=== PATIENT | male | born 1965 | race Caucasian/White ===

== ENCOUNTER 2023-08-07 10:23 | Outpatient (AMB) | payer OTHER, SELFPAY ==
--- NOTE | 2023-08-07 10:38 | MHC.OFFVIS ---
Intake Vital Signs 08/07/23 10:46 Height 5 ft 9 in Weight 198 lb BMI 29.2 BP 122/86 Blood Pressure Location Rt brachial Position Sitting Respiration 16 Pulse 100 Pulse Source Pulse Oximeter Pulse Oximetry (%) 99 Oxygen Delivery Method Room Air Intake Visit Reasons: Back pain - LVM Intake Note: Patient came in for initial visit was referred by primary care. Reports back and shoulder pain 12/23. Has been going to physical therapy twice a week for 1 year and 8 months. Allergies No Known Allergies Allergy (Verified 08/07/23 10:42) HPI HPI Comments History of Present Illness Details Pradip mcneill) is very pleasant 58 years old gentleman who presents in my office with complains on pain in the lower back. Somehow he relates this pain to the pain in the left shoulder as well. He reports that he had a trauma at work in the summer of 2021, he reported severe pain in the shoulder and went to [facility] for the consult. Originally the tear of rotator cuff was diagnose and he was sent to physical therapy. He is started to feel his lower back pain while in physical therapy. He change his Dr. Josue at [facility] And went to [place] orthopedic surgeon where he was diagnose with rotator cuff tear and biceps tear which would require immediate surgery. He had surgery performed and was sent for physical therapy again and that made his back getting worse. 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 He reports that the pain is unpredictable and very often he feels his pain when he is trying to switch his torso from side to side. The pain is most severe during the daytime. In terms of tissue damage he describes his pain as stabbing, lancinating, cramping, crushing sensation. He did not have any MRI of the lower back. He had MRI of the shoulder only. He had chiropractic manipulation 2 sessions and reported no help. He never had any injections in the past. There is no images of the lower back at this time however the pain in the lower back is chronic by this time 1-1/2 year interval. His past medical history significant for elevated cholesterol his past surgical history significant for shoulder surgery and ear tubes as a child. 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 He is under workmen's comp for his shoulder injury. He denies smoking cigarettes Ms. Drinking 6 beers a week of alcohol he drinks 2 cups of coffee a day and he denies recreational drugs. [facility] Medical History (Updated 08/07/23 @ 11:50 by Dmitriy Ross MD) HLD (hyperlipidemia) Left shoulder pain Impacted cerumen Elevated blood pressure, situational Insomnia Anxiety Review of Systems Const Denies chills and Denies fever(s) Eyes Denies blurry vision, Denies exophthalmos and Denies diplopia ENT Reports Normal hearing present Card Denies chest pain, Denies chest pain at rest, Denies chest pain with activity, Reports diaphoresis, Denies syncope, Denies rapid heart rate, Denies pedal edema and Denies edema Resp Denies chest congestion, Denies cough, Denies hemoptysis, Denies excessive phlegm production, Denies pain on inspiration and Denies pain with cough GI Denies abdominal pain, Denies belching, Denies melena and Denies bloating Denies urinary incontinence Musc Denies as per HPI, Denies back pain and Denies tingling Neuro Reports Normal hearing present, Denies Abnormal speech present, Denies confusion, Denies syncope, Denies lack of coordination, Denies Sensory deficit (Neuro) and Denies tingling Psych Reports anxiety, Denies confusion, Denies depression and Reports irritability Physical Exam Vital Signs: Last Vital Signs Pulse 100 08/07/23 10:46 Resp 16 08/07/23 10:46 BP 122/86 08/07/23 10:46 Pulse Ox 99 08/07/23 10:46 Oxygen Delivery Method Room Air 08/07/23 10:46 BMI result Body Mass Index 29.2 Const General: No confusion Orientation/consciousness: No confusion Eyes General: appearance normal, both eyes and all related structures Pupils: Equal, round and reactive pupils present EOM: EOMs intact bilaterally Neck Neck: Yes full ROM Chest Chest palpation & inspection: normal inspection of the chest Resp Effort & Inspection: normal respiratory effort, able to speak in complete sentences, normal respiratory pattern, no audible wheezes and no cough Cardio Jugular venous distension: no JVD GI Inspection: Yes normal to inspection Back/Spine/Pelvis Other: Able to stand on bilateral tiptoes and bilateral heels without difficulty. Walks without gait pathology. Able to flex himself forward and backwards with minimal difficulty. Denies tenderness on palpation in the lumbar spine and paraspinal spinal region. SLR is negative bilaterally. Stinchfield test, Abdiel test, Gaenslen test, positive for increase of the pain in the lower back. Neuro General: No confusion Cranial nerves: Yes CN's II-XII intact bilaterally, Yes Equal, round and reactive pupils present, Yes Normal hearing present and Yes Ability to bilaterally elevate shoulders present Speech: No Abnormal speech present Gait exam (Neuro): Normal gait present Motor exam (neuro): 5/5 motor strength present throughout Sensory Exam: No Sensory deficit (Neuro) Extrem General: No pedal edema Psych Speech and movement: Normal speech and movement present Affect: normal affect Attitude: cooperative Thought process: Normal thought process present Thought content: Normal thought content present Insight: Good insight present (Psych) Judgement: Good judgement present (Psych) Assessment & Plan Assessment & Plan (1) Sacroiliitis: Code(s): M46.1 - Sacroiliitis, not elsewhere classified (2) Sacroiliac joint dysfunction of both sides: Code(s): M53.3 - Sacrococcygeal disorders, not elsewhere classified (3) Low back pain: Code(s): M54.50 - Low back pain, unspecified Plan: Prolonged and Lynnette difficult conversation ensued with this patient. It seemed to be for me that he is suffering from bilateral sacroiliitis, however I can not exclude vertebra genic pain. He is confused about coverage of his painful conditions with [employer] versus his traditional insurance company. I recommended him to perform bilateral diagnostic sacroiliac joint injection. If this procedure will not relieve her pain for appropriate time with appropriate percentage arrange I will send him for the MRI of the lumbar spine to evaluate possible vertebra genic pain. (4) Vertebrogenic low back pain: Code(s): M54.51 - Vertebrogenic low back pain Plan We will schedule him for diagnostic bilateral SI joint injection. Patient Instructions: I here by testify that I spent 55 minutes in conversation with this patient as well as planning his care and organizing this note. Coding Level of Care Code New Pt Level 4 (98659) Diagnoses Sacroiliitis M46.1 Sacroiliac joint dysfunction of both sides M53.3 Low back pain M54.50 Vertebrogenic low back pain M54.51
[2023-08-07 10:46] VITALS: BP 122/86; PULSE 100; RESP 16; O2SAT 99; BMI 29.2
== END 2023-08-07 11:44 | disposition home or self-care (01) ==
PROVIDERS: PCP Internal Medicine; Visit Provider Anesthesiology
DX: M46.1 Sacroiliitis, not elsewhere classified (principal); M53.3 Sacrococcygeal disorders, not elsewhere classified; M54.50 Low back pain, unspecified; M54.51 Vertebrogenic low back pain
CPT/HCPCS: 99204

== ENCOUNTER → 2023-08-07 10:23 | Outpatient (BNVA) | payer OTHER, SELFPAY | PROVIDERS: PCP Internal Medicine; Visit Provider Anesthesiology ==

== ENCOUNTER 2023-09-16 06:59 | Outpatient (REF) | payer OTHER, SELFPAY ==
--- NOTE | ~2023-09-16 | FL_ITS ---
EXAMINATION: XR FLUOROSCOPY WITH IMAGES CLINICAL INFORMATION: Sacrococcygeal disorders, not elsewhere classified. COMPARISON: None available. TECHNIQUE: Fluoroscopy Supervised By: Dr. Evette Dobson. Fluoroscopy Time: 0.2 minutes. DAP: 0.802 Gycm2. Images: 2. FINDINGS: [place] are seen adjacent to/overlying the region of the SI joints. Please see Dr. Evette Dobson's procedure note for full details. FL/FL guidance in treatment room IMPRESSION: Fluoroscopy and spot films provided during SI joint injection.
== END 2023-09-16 07:00 | disposition home or self-care (01) ==
LOC: CF 06:59
PROVIDERS: Visit Provider Anesthesiology
DX: M53.3 Sacrococcygeal disorders, not elsewhere classified (principal); M46.1 Sacroiliitis, not elsewhere classified
CPT/HCPCS: 27096; J2795; Q9967

== ENCOUNTER 2023-09-16 10:14 | Outpatient (AMB) | payer OTHER, SELFPAY ==
--- NOTE | 2023-09-16 11:24 | MHC.OFFVIS ---
Intake Vital Signs 09/16/23 11:25 09/16/23 11:26 Height 5 ft 9 in Weight 198 lb BMI 29.2 BP 120/82 118/74 Blood Pressure Location Lt brachial Lt brachial Position Sitting Sitting Respiration 18 18 Pulse 72 70 Pulse Source Pulse Oximeter Pulse Oximeter Pulse Oximetry (%) 99 96 Oxygen Delivery Method Room Air Room Air Comment Pre-Op Post-Op Intake Visit Reasons: BILATERAL DIAGNOSTIC SIJ INJECTIONS Allergies No Known Allergies Allergy (Verified 08/07/23 10:42) PFSH Medical History (Updated 08/07/23 @ 11:50 by Dmitriy Ross MD) HLD (hyperlipidemia) Left shoulder pain Impacted cerumen Elevated blood pressure, situational Insomnia Anxiety Physical Exam Vital Signs: Last Vital Signs Pulse 70 09/16/23 11:26 Resp 18 09/16/23 11:26 BP 118/74 09/16/23 11:26 Pulse Ox 96 09/16/23 11:26 Oxygen Delivery Method Room Air 09/16/23 11:26 BMI result Body Mass Index 29.2 Assessment & Plan Assessment & Plan (1) Sacroiliac joint dysfunction of both sides: Code(s): M53.3 - Sacrococcygeal disorders, not elsewhere classified Plan: Bilateral diagnostic sacroiliac joint injection Informed consent was explained thoroughly to the patient. All questions about benefits and risks for the procedure were answered. Patient came to the operating room and was positioned prone on the operating table with the pillow under the pelvis. Time out was performed delineating name and of the patient, allergies and the nature of the procedure. The lower back and buttocks of the patient were prepped with ChloraPrep prepped and draped with sterile utility towels. C-arm was brought over the operating field and sq picture of patient's pelvis was demonstrated on the screen. For the right joint tilting C-arm contralateral to the site of the joint the most posterior portion of the joints was superimposed with anterior silhouette of the joint. Skin was injected in the projection of the joint slightly medial to the location of the joint with 25 gauge 1/2 inch needle using local lidocaine 2% .After that 22 gauge 3 and 1/2 inch needle was driven to the right joint in tunnel vision fashion. When needle entered the joint capsule injection of the contrast was performed demonstrating intra-articular and minimally periarticular spread of the contrast. After that 4 cc. of ropivacaine 0.5% was injected into the joint. Upon completion of the injections the needle was removed. The procedure was repeated on the left side in the mirroring fashion. Sterile dressing was applied. Upon completion of the injection patient was taken outside of the operating room to the recovery room where recovered uneventfully. (2) Sacroiliitis: Code(s): M46.1 - Sacroiliitis, not elsewhere classified Plan Orders: Orders FL guidance in treatment room Today M53.3 - Sacrococcygeal disorders, not elsewhere classified Coding Level of Care Code Procedure Only Diagnoses Sacroiliac joint dysfunction of both sides M53.3 Sacroiliitis M46.1
[2023-09-16 11:25] VITALS: BP 120/82; PULSE 72; RESP 18; O2SAT 99; BMI 29.2
[2023-09-16 11:26] VITALS: BP 118/74; PULSE 70; RESP 18; O2SAT 96
== END 2023-09-16 11:20 | disposition home or self-care (01) ==
LOC: HO.PMCPRC 10:14
PROVIDERS: PCP Internal Medicine; Visit Provider Anesthesiology
DX: M53.3 Sacrococcygeal disorders, not elsewhere classified (principal); M46.1 Sacroiliitis, not elsewhere classified
CPT/HCPCS: 27096

== ENCOUNTER 2023-09-22 10:23 | Outpatient (AMB) | payer OTHER, SELFPAY ==
--- NOTE | 2023-09-22 10:40 | MHC.OFFVIS ---
Intake Vital Signs 09/22/23 10:41 Height 5 ft 9 in Weight 201 lb 2 oz BMI 29.7 BP 150/78 H Blood Pressure Location Rt brachial Position Sitting Respiration 16 Pulse 88 Pulse Source Pulse Oximeter Pulse Oximetry (%) 99 Oxygen Delivery Method Room Air Intake Visit Reasons: BILATERAL DIAGNOSTIC SIJ INJECTIONS Intake Note: Patient comes in for post-op appointment. Reports pain 09/23. Allergies No Known Allergies Allergy (Verified 09/22/23 10:40) HPI HPI Comments History of Present Illness Details Pradip mcneill) is back in my office after diagnostic bilateral sacroiliac joint injection. He reports absence of pain in the 1st 3 hours after the procedure. He reports excellent mobility excellent activities of daily living ability to perform movements and tasks which he was not able to perform before the injection. He reports that he was able to squat after the procedure, which he was not able to do it for the long period of time. He still enjoys very low level of pain in his sacroiliac joints. I offered him therapeutic sacroiliac joint injection. He agreed to go for the procedure. I also decided to send him for computer tomography of bony pelvis to evaluate the status of the sacroiliac joints as well as to take possible look into lower lumbar spine. I was considering him in differential diagnosis between the that vertebra genic pain and sacroiliac joint pain. After the injection it seemed to be that most of his pain is coming from sacroiliac joints. We will see how he will respond to sacroiliac joint therapeutic injections. I also decided to fit him with the sacroiliac joint belt. We will invite him here to fit him for the belt. Prior: Lower back pain and left shoulder pain. He reports that he had a trauma at work in the summer of 2021, he reported severe pain in the shoulder and went to [facility] for the consult. Originally the tear of rotator cuff was diagnose and he was sent to physical therapy. He is started to feel his lower back pain while in physical therapy. He change his Dr. Josue at [facility]. And went to [place] orthopedic surgeon where he was diagnose with rotator cuff tear and biceps tear which would require immediate surgery. He had surgery performed and was sent for physical therapy again and that made his back getting worse. 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 He did not have any MRI of the lower back. He had MRI of the shoulder only. He had chiropractic manipulation 2 sessions and reported no help. He never had any injections in the past. There is no images of the lower back at this time however the pain in the lower back is chronic by this time 1-1/2 year interval. [facility] Medical History (Updated 08/07/23 @ 11:50 by Dmitriy Ross MD) HLD (hyperlipidemia) Left shoulder pain Impacted cerumen Elevated blood pressure, situational Insomnia Anxiety Review of Systems Const All systems reviewed & are unremarkable except as noted in HPI and below ENT Reports Normal hearing present Neuro Reports Normal hearing present, Denies Abnormal speech present, Denies confusion and Denies Sensory deficit (Neuro) Psych Denies confusion Physical Exam Vital Signs: Last Vital Signs Pulse 88 09/22/23 10:41 Resp 16 09/22/23 10:41 BP 150/78 H 09/22/23 10:41 Pulse Ox 99 09/22/23 10:41 Oxygen Delivery Method Room Air 09/22/23 10:41 BMI result Body Mass Index 29.7 Const General: No confusion Orientation/consciousness: No confusion Eyes General: appearance normal, both eyes and all related structures Pupils: Equal, round and reactive pupils present EOM: EOMs intact bilaterally Neck Neck: Yes full ROM Chest Chest palpation & inspection: normal inspection of the chest Resp Effort & Inspection: normal respiratory effort, able to speak in complete sentences, normal respiratory pattern, no audible wheezes and no cough Cardio Jugular venous distension: no JVD GI Inspection: Yes normal to inspection Back/Spine/Pelvis Other: Able to stand on bilateral tiptoes and bilateral heels without difficulty. Walks without gait pathology. Able to flex himself forward and backwards with minimal difficulty. Denies tenderness on palpation in the lumbar spine and paraspinal spinal region. SLR is negative bilaterally. Stinchfield test, Abdiel test, Gaenslen test, positive for increase of the pain in the lower back. Neuro General: No confusion Cranial nerves: Yes CN's II-XII intact bilaterally, Yes Equal, round and reactive pupils present, Yes Normal hearing present and Yes Ability to bilaterally elevate shoulders present Speech: No Abnormal speech present Gait exam (Neuro): Normal gait present Motor exam (neuro): 5/5 motor strength present throughout Sensory Exam: No Sensory deficit (Neuro) Extrem General: No pedal edema Psych Speech and movement: Normal speech and movement present Affect: normal affect Attitude: cooperative Thought process: Normal thought process present Thought content: Normal thought content present Insight: Good insight present (Psych) Judgement: Good judgement present (Psych) Assessment & Plan Assessment & Plan (1) Sacroiliitis: Code(s): M46.1 - Sacroiliitis, not elsewhere classified (2) Sacroiliac joint dysfunction of both sides: Code(s): M53.3 - Sacrococcygeal disorders, not elsewhere classified (3) Low back pain: Code(s): M54.50 - Low back pain, unspecified Plan: Schedule patient for therapeutic sacroiliac joint injection. Evaluate how long the therapeutic sacroiliac joint injection will last for this patient. Prolonged sitting and flexing forward exacerbates his pain so I still believe that he might have degree of vertebra genic pain. I will send him for bony CT scan to rule out red flags for the future management. (4) Vertebrogenic low back pain: Code(s): M54.51 - Vertebrogenic low back pain Plan We will schedule him for diagnostic bilateral SI joint injection. Orders: Orders CT bony pelvis Today M46.1 - Sacroiliitis, not elsewhere classified, M53.3 - Sacrococcygeal disorders, not elsewhere classified Coding Level of Care Code Est Pt Level 3 (79553) Diagnoses Sacroiliitis M46.1 Sacroiliac joint dysfunction of both sides M53.3 Low back pain M54.50 Vertebrogenic low back pain M54.51
[2023-09-22 10:41] VITALS: BP 150/78; PULSE 88; RESP 16; O2SAT 99; BMI 29.7
== END 2023-09-22 11:20 | disposition home or self-care (01) ==
PROVIDERS: PCP Internal Medicine; Visit Provider Anesthesiology
DX: M46.1 Sacroiliitis, not elsewhere classified (principal); M53.3 Sacrococcygeal disorders, not elsewhere classified; M54.50 Low back pain, unspecified; M54.51 Vertebrogenic low back pain
CPT/HCPCS: 99213

== ENCOUNTER → 2023-09-22 10:23 | Outpatient (BNVA) | payer OTHER, SELFPAY | PROVIDERS: PCP Internal Medicine; Visit Provider Anesthesiology ==

== ENCOUNTER 2023-11-06 13:18 | Outpatient (REF) | payer OTHER, SELFPAY ==
--- NOTE | ~2023-11-06 | CT_ITS ---
EXAMINATION: CT PELVIS WITHOUT CONTRAST CLINICAL INFORMATION: Sacroiliitis COMPARISON: None available. TECHNIQUE: Helical scanning was performed with submillimeter collimation through the pelvis. Sagittal and coronal multiplanar 2-D reconstructions were obtained. This CT examination was performed using dose optimization techniques as appropriate, variously including the following: *Automated exposure control *Adjustment of mA and/or kV according to patient size (this includes techniques or standardized protocols for targeted exams where dose is matched to indication/reason for exam; i.e. extremities or head) *Use of iterative reconstruction technique DLP: 310 mGy-cm FINDINGS: Mild bilateral SI joint arthritis, with bony sclerosis marginating the joints. There is a osseous bridging partially along the anterior aspect of the left SI joint. No erosive changes are seen. Mild bilateral hip joint arthritis. Mild symphysis pubis degeneration. Mild right ischial tuberosity spurring. No evidence of acute fracture. No suspicious lytic or blastic lesion is seen. Within the pelvis, urinary bladder appears unremarkable. No dilated bowel loops. Scattered sigmoid diverticuli. No free fluid. No lymphadenopathy seen. Small fat-containing umbilical hernia. Chronic calcification in the posterolateral right gluteal subcutaneous tissues. CT/CT bony pelvis IMPRESSION: 1. Mild bilateral SI joint arthritis. 2. Mild bilateral hip joint arthritis. 3. Additional notes as above.
== END 2023-11-06 13:19 | disposition home or self-care (01) ==
LOC: HO.CT 13:18
PROVIDERS: Visit Provider Anesthesiology
DX: M53.3 Sacrococcygeal disorders, not elsewhere classified (principal); M46.1 Sacroiliitis, not elsewhere classified
CPT/HCPCS: 72192

== ENCOUNTER 2023-11-11 06:18 | Outpatient (REF) | payer OTHER, SELFPAY ==
--- NOTE | ~2023-11-11 | FL_ITS ---
EXAMINATION: XR FLUOROSCOPY WITH IMAGES CLINICAL INFORMATION: Sacrococcygeal disorders. COMPARISON: CT pelvis 11/06/2023. TECHNIQUE: Fluoroscopy Supervised By: Dr. Ross. Fluoroscopy Time: 0.2 min. Cumulative Dose: 3.70 mGy. DAP: 0.0643 Gycm2. Images: 5. FINDINGS: Intraoperative fluoroscopy and spot films were performed during a procedure in the OR. Spinal needles are present in the region of the right as well as left SI joints. Contrast is seen injected around the tips of the needles in the region of the joint. Please see Dr. Ross's report for complete details. FL/FL guidance in treatment room IMPRESSION: Intraoperative fluoroscopy and spot films were obtained. Please see Dr. Ross's report for complete details.
== END 2023-11-11 06:19 | disposition home or self-care (01) ==
LOC: CF 06:18
PROVIDERS: Visit Provider Anesthesiology
DX: M53.3 Sacrococcygeal disorders, not elsewhere classified (principal); M46.1 Sacroiliitis, not elsewhere classified
CPT/HCPCS: 27096; J2795; J3301; Q9967

== ENCOUNTER 2023-11-11 14:23 | Outpatient (AMB) | payer OTHER, SELFPAY ==
--- NOTE | 2023-11-11 14:55 | MHC.OFFVIS ---
Vital Signs 11/11/23 14:57 11/11/23 14:58 Height 5 ft 9 in Weight 201 lb BMI 29.7 BP 130/80 126/72 Blood Pressure Location Lt brachial Lt brachial Position Sitting Sitting Respiration 18 18 Pulse 89 90 Pulse Source Pulse Oximeter Pulse Oximeter Pulse Oximetry (%) 96 98 Oxygen Delivery Method Room Air Room Air Comment Pre-Op Post-Op Intake Visit Reasons: Mau theraputic SIJ inj Allergies No Known Allergies Allergy (Verified 09/22/23 10:40) PFSH Medical History (Updated 08/07/23 @ 11:50 by Dmitriy Ross MD) HLD (hyperlipidemia) Left shoulder pain Impacted cerumen Elevated blood pressure, situational Insomnia Anxiety Physical Exam Vital Signs: Last Vital Signs Pulse 90 11/11/23 14:58 Resp 18 11/11/23 14:58 BP 126/72 11/11/23 14:58 Pulse Ox 98 11/11/23 14:58 Oxygen Delivery Method Room Air 11/11/23 14:58 BMI result Body Mass Index 29.7 Assessment & Plan Assessment & Plan (1) Sacroiliac joint dysfunction of both sides: Code(s): M53.3 - Sacrococcygeal disorders, not elsewhere classified Category: Medical Plan: Bilateral therapeutic sacroiliac joint injection Informed consent was explained thoroughly to the patient. All questions about benefits and risks for the procedure were answered. Patient came to the operating room and was positioned prone on the operating table with the pillow under the pelvis. Time out was performed delineating name and of the patient, allergies and the nature of the procedure. The lower back and buttocks of the patient were prepped with ChloraPrep prepped and draped with sterile utility towels. C-arm was brought over the operating field and sq picture of patient's pelvis was demonstrated on the screen. For the right joint tilting C-arm contralateral to the site of the joint the most posterior portion of the joints was superimposed with anterior silhouette of the joint. Skin was injected in the projection of the joint slightly medial to the location of the joint with 25 gauge 1/2 inch needle using local lidocaine 2% .After that 22 gauge 3 and 1/2 inch needle was driven to the right joint in tunnel vision fashion. When needle entered the joint capsule injection of the contrast was performed demonstrating intra-articular and minimally periarticular spread of the contrast. After that 4 cc. of ropivacaine 0.5% mixed with Kenalog 40 mg was injected into the joint. Upon completion of the injections the needle was removed. The procedure was repeated on the left side in the mirroring fashion. Sterile dressing was applied. Upon completion of the injection patient was taken outside of the operating room to the recovery room where recovered uneventfully. (2) Sacroiliitis: Code(s): M46.1 - Sacroiliitis, not elsewhere classified Category: Medical Plan Orders: Orders [place] guidance in treatment room Today M53.3 - Sacrococcygeal disorders, not elsewhere classified Coding Level of Care Code Procedure Only Diagnoses Sacroiliac joint dysfunction of both sides M53.3 Sacroiliitis M46.1
[2023-11-11 14:57] VITALS: BP 130/80; PULSE 89; RESP 18; O2SAT 96; BMI 29.7
[2023-11-11 14:58] VITALS: BP 126/72; PULSE 90; RESP 18; O2SAT 98
== END 2023-11-11 14:54 | disposition home or self-care (01) ==
LOC: HO.PMCPRC 14:23
PROVIDERS: PCP Internal Medicine; Visit Provider Anesthesiology
DX: M53.3 Sacrococcygeal disorders, not elsewhere classified (principal); M46.1 Sacroiliitis, not elsewhere classified
CPT/HCPCS: 27096

== ENCOUNTER 2023-12-11 09:40 | Outpatient (AMB) | payer OTHER, SELFPAY ==
--- NOTE | 2023-12-11 09:55 | A.OFFVIS_ITS ---
Vital Signs 12/11/23 10:03 Height 5 ft 9 in Weight 192 lb 6 oz BMI 28.4 BP 128/88 Blood Pressure Location Lt brachial Position Sitting Respiration 16 Pulse 87 Pulse Source Pulse Oximeter Pulse Oximetry (%) 98 Oxygen Delivery Method Room Air Intake Visit Reasons: s/p gosia theraputic SIJ inj Intake Note: Patient comes in for post-op appointment. Reports pain 3-410. Allergies No Known Allergies Allergy (Verified 12/11/23 10:03) HPI Comments Details: Pradip mcneill) is back in my office after therapeutic bilateral sacroiliac joint injection 11/11/2023. The patient reported no pain improvement whatsoever and maybe even pain aggravation after the sacroiliac joint injection. She was sent by the Dr. Barnes in the past for CT scan of the pelvis and partial image of the lumbar spine was caught in there. There are some edematous changes could be suspected on S1 projection on the lateral view. 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 I will send him for the MRI of the lumbar spine. He will schedule appointment with me after the MRI. If I will find vertebra genic changes I will offer him intercept procedure. Results of the diagnostic sacroiliac joint injection: He reports absence of pain in the 1st 3 hours after the procedure. He reports excellent mobility excellent activities of daily living ability to perform movements and tasks which he was not able to perform before the injection. He reports that he was able to squat after the procedure, which he was not able to do it for the long period of time. He still enjoys very low level of pain in his sacroiliac joints. I offered him therapeutic sacroiliac joint injection. He agreed to go for the procedure. I also decided to send him for computer tomography of bony pelvis to evaluate the status of the sacroiliac joints as well as to take possible look into lower lumbar spine. I was considering him in differential diagnosis between the that vertebra genic pain and sacroiliac joint pain. After the injection it seemed to be that most of his pain is coming from sacroiliac joints. We will see how he will respond to sacroiliac joint therapeutic injections. I also decided to fit him with the sacroiliac joint belt. We will invite him here to fit him for the belt. Prior: Lower back pain and left shoulder pain. He reports that he had a trauma at work in the summer of 2021, he reported severe pain in the shoulder and went to [facility] for the consult. Originally the tear of rotator cuff was diagnose and he was sent to physical therapy. He is started to feel his lower back pain while in physical therapy. He change his Dr. Josue at [facility]. And went to [place] where he was diagnose with rotator cuff tear and biceps tear which would require immediate surgery. He had surgery performed and was sent for physical therapy again and that made his back getting worse. 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 He did not have any MRI of the lower back. He had MRI of the shoulder only. He had chiropractic manipulation 2 sessions and reported no help. He never had any injections in the past. There is no images of the lower back at this time however the pain in the lower back i s chronic by this time 1-1/2 year interval. [facility] Medical History (Updated 08/07/23 @ 11:50 by Dmitriy Ross MD) HLD (hyperlipidemia) Left shoulder pain Impacted cerumen Elevated blood pressure, situational Insomnia Anxiety Review of Systems Const All systems reviewed & are unremarkable except as noted in HPI and below ENT Reports Normal hearing present Neuro Reports Normal hearing present, Denies Abnormal speech present, Denies confusion and Denies Sensory deficit (Neuro) Psych Denies confusion Physical Exam Vital Signs: Last Vital Signs Pulse 87 12/11/23 10:03 Resp 16 12/11/23 10:03 BP 128/88 12/11/23 10:03 Pulse Ox 98 12/11/23 10:03 Oxygen Delivery Method Room Air 12/11/23 10:03 BMI result Body Mass Index 28.4 Const General: No confusion Orientation/consciousness: No confusion Eyes General: appearance normal, both eyes and all related structures Pupils: Equal, round and reactive pupils present EOM: EOMs intact bilaterally Neck Neck: Yes full ROM Chest Chest palpation & inspection: normal inspection of the chest Resp Effort & Inspection: normal respiratory effort, able to speak in complete sentences, normal respiratory pattern, no audible wheezes and no cough Cardio Jugular venous distension: no JVD GI Inspection: Yes normal to inspection Back/Spine/Pelvis Other: Able to stand on bilateral tiptoes and bilateral heels without difficulty. Walks without gait pathology. Able to flex himself forward and backwards with minimal difficulty. Denies tenderness on palpation in the lumbar spine and paraspinal spinal region. SLR is negative bilaterally. Stinchfield test, Abdiel test, Gaenslen test, positive for increase of the pain in the lower back. Neuro General: No confusion Cranial nerves: Yes CN's II-XII intact bilaterally, Yes Equal, round and reactive pupils present, Yes Normal hearing present and Yes Ability to bilaterally elevate shoulders present Speech: No Abnormal speech present Gait exam (Neuro): Normal gait present Motor exam (neuro): 5/5 motor strength present throughout Sensory Exam: No Sensory deficit (Neuro) Extrem General: No pedal edema Psych Speech and movement: Normal speech and movement present Affect: normal affect Attitude: cooperative Thought process: Normal thought process present Thought content: Normal thought content present Insight: Good insight present (Psych) Judgement: Good judgement present (Psych) Assessment & Plan Assessment & Plan (1) Sacroiliitis: Code(s): M46.1 - Sacroiliitis, not elsewhere classified Category: Medical (2) Sacroiliac joint dysfunction of both sides: Code(s): M53.3 - Sacrococcygeal disorders, not elsewhere classified Category: Medical (3) Low back pain: Code(s): M54.50 - Low back pain, unspecified Category: Medical Plan: Therapeutic sacroiliac joint injection unlike diagnostic SI joint injection resulted in pain aggravation and not pain improvement. CT scan of the lumbar spine demonstrated some changes in the S1 projection. I need to evaluate MRI of the lumbar spine I will send him for the MRI. 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 If the MRI changes I will schedule this patient for intercept procedure if he agrees to go for it. Prolonged sitting and flexing forward exacerbates his pain so I still believe that he might have degree of vertebra genic pain. I will send him for bony CT scan to rule out red flags for the future management. (4) Vertebrogenic low back pain: Code(s): M54.51 - Vertebrogenic low back pain Category: Medical Plan He will give us a call to schedule an appointment as soon as he completes his MRI. Orders: Orders MR lumbar spine wo con Today M54.51 - Vertebrogenic low back pain Patient Instructions: I here by testify that today we had prolonged and detailed conversation about the patient's condition. It took me 38 minutes to complete the conversation. Coding Level of Care Code Est Pt Level 4 (80313) Diagnoses Sacroiliitis M46.1 Sacroiliac joint dysfunction of both sides M53.3 Low back pain M54.50 Vertebrogenic low back pain M54.51
[2023-12-11 10:03] VITALS: BP 128/88; PULSE 87; RESP 16; O2SAT 98; BMI 28.4
== END 2023-12-11 11:05 | disposition home or self-care (01) ==
PROVIDERS: PCP Internal Medicine; Visit Provider Anesthesiology
DX: M46.1 Sacroiliitis, not elsewhere classified (principal); M53.3 Sacrococcygeal disorders, not elsewhere classified; M54.50 Low back pain, unspecified; M54.51 Vertebrogenic low back pain
CPT/HCPCS: 99214

== ENCOUNTER → 2023-12-11 09:40 | Outpatient (BNVA) | payer OTHER, SELFPAY | PROVIDERS: PCP Internal Medicine; Visit Provider Anesthesiology ==

== ENCOUNTER 2024-01-08 13:24 | Outpatient (REF) | payer OTHER, SELFPAY ==
--- NOTE | ~2024-01-08 | MR_ITS ---
EXAMINATION: MR LUMBAR SPINE WITHOUT CONTRAST CLINICAL INFORMATION: vertebrogenic low back pain. COMPARISON: None available. TECHNIQUE: MRI of the lumbar spine was obtained using routine sequences without contrast. FINDINGS: There are 5 nonrib-bearing lumbar-type vertebrae. Preservation of the normal lumbar lordosis. No listhesis. No acute bone marrow abnormality. The vertebral body heights are preserved. The disc spaces are also preserved. The visualized spinal cord is normal in caliber. No abnormal cortical signal. The conus medullaris terminates at L1. T12-L1: No significant spinal canal or neural foraminal narrowing. L1-2: No significant spinal canal and neural foraminal narrowing. L2-3: No significant spinal canal or neural foraminal narrowing. L3-4: Shallow disc bulge. No significant spinal canal or neural foraminal narrowing. L4-5: Bilateral facet arthrosis. No significant spinal canal stenosis. Mild right neural foraminal narrowing with the disc abutting the right exiting L4 nerve roots. L5-S1: Bilateral facet arthrosis. No significant spinal canal and neural foraminal narrowing. The paravertebral soft tissues are unremarkable. Right renal cyst. MR/MR lumbar spine wo con IMPRESSION: Multilevel degenerative changes throughout the lumbar spine without significant spinal canal stenosis. At L4-L5, there is mild right neural foraminal narrowing with the disc abutting the exiting right L4 nerve root. Electronically signed by: Daphne Banuelos MD 02/05/2024 11:07 AM EDT
== END 2024-01-08 13:25 | disposition home or self-care (01) ==
LOC: HO.MRI 13:24
PROVIDERS: PCP Internal Medicine; Visit Provider Anesthesiology
DX: M54.51 Vertebrogenic low back pain (principal)
CPT/HCPCS: 72148

== ENCOUNTER 2024-03-10 10:06 | Outpatient (AMB) | payer OTHER, SELFPAY ==
[2024-03-10 10:15] VITALS: BP 144/86; PULSE 81; RESP 16; O2SAT 95; BMI 28.2
--- NOTE | 2024-03-10 10:15 | A.OFFVIS_ITS ---
Vital Signs 03/10/24 10:15 Height 5 ft 9 in Weight 191 lb 2 oz BMI 28.2 BP 144/86 H Blood Pressure Location Lt brachial Position Sitting Respiration 16 Pulse 81 Pulse Source Pulse Oximeter Pulse Oximetry (%) 95 Oxygen Delivery Method Room Air Intake Visit Reasons: MRI FOLLOW UP/RESULTS Intake Note: Patient comes in to discuss MRI results. Reports pain 08/23. Allergies No Known Allergies Allergy (Verified 03/10/24 10:17) HPI Comments Details: Pradip (duncan) is back in my office to continue the discussion about his conditions. 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 They no longer want to keep him in the active staff. He signed the resignation paper and now he reports that he is in very difficult financial position. He reports that he has a big mortgage on the house and he has no income to pay for it. He reports family and marriage difficulties. He appears to be upset about current situation. Several times during the conversation I tried to start him into the results of his MRI which he received in December of this year 2023. There are arthritic changes in the lower lumbar spine for which I offered him diagnostic medial branch block however the patient was not very eager to accept the procedure. His mind was mostly concentrated on his inability to work, disability, and family circumstances. 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 No improvement in pain aggravation after therapeutic bilateral sacroiliac joint injection 11/11/2023. MRI reports dictated as below. Personally I evaluated that MRI and did not find any significant changes which could be indicative of vertebra genic pain syndrome. There is significant arthritis and minimal foraminal stenosis. Results of the diagnostic sacroiliac joint injection: He reports absence of pain in the 1st 3 hours after the procedure. He reports excellent mobility excellent activities of daily living ability to perform movements and tasks which he was not able to perform before the injection. He reports that he was able to squat after the procedure, which he was not able to do it for the long period of time. He had a trauma at work in the summer of 2021, he reported severe pain in the shoulder and went to [facility] for the consult. Originally the tear of rotator cuff was diagnose and he was sent to physical therapy. He is started to feel his lower back pain while in physical therapy. He change his Dr. Josue at [facility]. And went to [place] [facility] surgeon where he was diagnose with rotator cuff tear and biceps tear which would require immediate surgery. He had surgery performed and was sent for physical therapy again and that made his back getting worse. 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 He did not have any MRI of the lower back. He had MRI of the shoulder only. He had chiropractic manipulation 2 sessions and reported no help. He never had any injections in the past. [facility] Medical History (Updated 08/07/23 @ 11:50 by Dmitriy Ross MD) HLD (hyperlipidemia) Left shoulder pain Impacted cerumen Elevated blood pressure, situational Insomnia Anxiety Review of Systems Const All systems reviewed & are unremarkable except as noted in HPI and below ENT Reports Normal hearing present Neuro Reports Normal hearing present, Denies Abnormal speech present, Denies confusion and Denies Sensory deficit (Neuro) Psych Denies confusion Physical Exam Vital Signs: Last Vital Signs Pulse 81 03/10/24 10:15 Resp 16 03/10/24 10:15 BP 144/86 H 03/10/24 10:15 Pulse Ox 95 03/10/24 10:15 Oxygen Delivery Method Room Air 03/10/24 10:15 BMI result Body Mass Index 28.2 Const General: No confusion Orientation/consciousness: No confusion Eyes General: appearance normal, both eyes and all related structures Pupils: Equal, round and reactive pupils present EOM: EOMs intact bilaterally Neck Neck: Yes full ROM Chest Chest palpation & inspection: normal inspection of the chest Resp Effort & Inspection: normal respiratory effort, able to speak in complete sentences, normal respiratory pattern, no audible wheezes and no cough Cardio Jugular venous distension: no JVD GI Inspection: Yes normal to inspection Back/Spine/Pelvis Other: Able to stand on bilateral tiptoes and bilateral heels without difficulty. Walks without gait pathology. Able to flex himself forward and backwards with minimal difficulty. Denies tenderness on palpation in the lumbar spine and paraspinal spinal region. SLR is negative bilaterally. Stinchfield test, Abdiel test, Gaenslen test, positive for increase of the pain in the lower back. Neuro General: No confusion Cranial nerves: Yes CN's II-XII intact bilaterally, Yes Equal, round and reactive pupils present, Yes Normal hearing present and Yes Ability to bilaterally elevate shoulders present Speech: No Abnormal speech present Gait exam (Neuro): Normal gait present Motor exam (neuro): 5/5 motor strength present throughout Sensory Exam: No Sensory deficit (Neuro) Extrem General: No pedal edema Psych Speech and movement: Normal speech and movement present Affect: normal affect Attitude: cooperative Thought process: Normal thought process present Thought content: Normal thought content present Insight: Good insight present (Psych) Judgement: Good judgement present (Psych) Results Reviewed Results Reviewed: EXAMINATION: MR LUMBAR SPINE WITHOUT CONTRAST FINDINGS: There are 5 nonrib-bearing lumbar-type vertebrae. Preservation of the normal lumbar lordosis. No listhesis. No acute bone marrow abnormality. The vertebral body heights are preserved. The disc spaces are also preserved. The visualized spinal cord is normal in caliber. No abnormal cortical signal. The conus medullaris terminates at L1. T12-L1: No significant spinal canal or neural foraminal narrowing. L1-2: No significant spinal canal and neural foraminal narrowing. L2-3: No significant spinal canal or neural foraminal narrowing. L3-4: Shallow disc bulge. No significant spinal canal or neural foraminal narrowing. L4-5: Bilateral facet arthrosis. No significant spinal canal stenosis. Mild right neural foraminal narrowing with the disc abutting the right exiting L4 nerve roots. L5-S1: Bilateral facet arthrosis. No significant spinal canal and neural foraminal narrowing. The paravertebral soft tissues are unremarkable. Right renal cyst. IMPRESSION: Multilevel degenerative changes throughout the lumbar spine without significant spinal canal stenosis. At L4-L5, there is mild right neural foraminal narrowing with the disc abutting the exiting right L4 nerve root. Assessment & Plan Assessment & Plan (1) Sacroiliitis: Code(s): M46.1 - Sacroiliitis, not elsewhere classified Category: Medical (2) Sacroiliac joint dysfunction of both sides: Code(s): M53.3 - Sacrococcygeal disorders, not elsewhere classified Category: Medical (3) Low back pain: Code(s): M54.50 - Low back pain, unspecified Category: Medical Plan: Therapeutic sacroiliac joint injection unlike diagnostic SI joint injection resulted in pain aggravation and not pain improvement. Unfortunately the MRI of the lumbar spine did not demonstrate any vertebra genic changes as I hoped it would. If anything is significant in that examination is that he has arthritis in his lower back. He had very long and detailed conversation with me explaining his social circumstances see as above. Unfortunately nothing there I can help him with. Meanwhile I offered him diagnostic medial branch block L2-L3 L4, possibly L3 L4-5 bilaterally to reject or accept the notion that his pain is facetogenic in nature. However the patient mainly concentrated on his narrow social circumstances and he decided to think about whether or not he wants to go for this procedure. The diagnostic sacroiliac joint injections were seemingly successful albeit for short of than usual period of time. Therapeutic sacroiliac joint injection resulted in no improvement and rather in pain aggravation. I gave the patient chance to think about medial branch blocks as I was offering him if he decides to go for this procedure he will give us a call and we will schedule him for the procedure. Currently I will not be writing any booking orders until I hear from the patient that he is ready to go for the procedure. (4) Vertebrogenic low back pain: Code(s): M54.51 - Vertebrogenic low back pain Category: Medical Plan See as above. Patient Instructions: I here by testify that I spent 35 minutes in conversation with this patient as well as evaluating his MRI images and the MRI reports as well as planning his care and organizing this note. Coding Level of Care Code Est Pt Level 4 (60070) Diagnoses Sacroiliitis M46.1 Sacroiliac joint dysfunction of both sides M53.3 Low back pain M54.50 Vertebrogenic low back pain M54.51
== END 2024-03-10 10:37 | disposition home or self-care (01) ==
PROVIDERS: PCP Internal Medicine; Visit Provider Anesthesiology
DX: M46.1 Sacroiliitis, not elsewhere classified (principal); M53.3 Sacrococcygeal disorders, not elsewhere classified; M54.50 Low back pain, unspecified; M54.51 Vertebrogenic low back pain
CPT/HCPCS: 99214

== ENCOUNTER → 2024-03-10 10:06 | Outpatient (BNVA) | payer OTHER, SELFPAY | PROVIDERS: PCP Internal Medicine; Visit Provider Anesthesiology ==